=== PATIENT | male | born 1945 | race Caucasian/White ===

== ENCOUNTER 2020-01-04 16:23 | Emergency (ER) | payer MEDICARE, SELFPAY ==
[2020-01-04 16:36] VITALS: BP 179/103; PULSE 82; RESP 16; TEMP 36.4; O2SAT 97; BMI 22.9
--- NOTE | 2020-01-04 16:46 | XR_ITS ---
WS: [id number] PORTABLE CHEST HISTORY: cp COMPARISON: 03/19/2019 Mild pulmonary hyperexpansion. No pneumonia or pulmonary nodules. No pleural effusion or pneumothorax . Cardiac size: Normal. Mediastinum/Aorta: Mild atherosclerosis aorta. Single anchor RIGHT humeral head. XR/XR chest 1V portable [id number] IMPRESSION: Chronic emphysema and mild ectatic thoracic aorta. No pneumonia.
--- NOTE | 2020-01-04 16:46 | ECG_ITS ---
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 Measurements Intervals [place] Rate: 73 P: 42 [place]: 176 QRS: 33 QRSD: 113 T: 38 QT: 404 QTc: 446 Interpretive Statements SINUS RHYTHM INCOMPLETE RIGHT BUNDLE BRANCH BLOCK NONSPECIFIC T-WAVE ABNORMALITY Compared to ECG 03/19/2019 09:30:37 T-wave abnormality now present Sinus bradycardia no longer present Electronically Signed On 01-04-2020 18:25:04 CDT by Haylee Silva M.D. [email or web address]/[id number]
--- NOTE | 2020-01-04 16:54 | W.ED.CHESTPA ---
HPI - Chest Pain General: Chief Complaint: Chest Pain Stated Complaint: high bp Time Seen by Provider: 01/04/20 16:51 History of Present Illness: HPI narrative: 74-year-old male comes in complaint of chest pain. He said the chest pain for last 2 to 3 days additionally his blood pressures been elevated. He had chest pain for last 2 to 3 days is worse when he takes a deep breath worsening palpates along the lower border of the sternum. About 2 weeks ago they started him on amlodipine 2.5 mg his blood pressure is been a little off since then. He also notes that when he lays down flat the chest pain is much better. He is not noticed any focal neurologic deficits, no difficulty speech or swallowing. He does have neurogenic bladder from previous spinal cord injury. MD complaint: chest pain Onset (ago): week(s) Timing of current episode: episodic and still present Prior episodes: No Onset: during rest Pain location: left chest Pain radiation: none Severity: mild Quality: sharp Relieving factors: rest and remaining still Exacerbating factors: inspiration and palpation Associated symptoms: Deny diaphoresis, dyspnea, fever(s), leg edema, nausea, palpitations, sense of impending doom, syncope or vomiting Treatment prior to arrival: none Review of Systems Const: Denies: fever(s) or diaphoresis ENMT: Denies: throat pain, ear or mastoid pain, nasal discharge or nasal congestion Card: Denies: palpitations or syncope Resp: Denies: dyspnea GI: Denies: nausea or vomiting : Denies: flank pain, dysuria, urinary frequency or urinary urgency Skin/Breast: Denies: rash or pruritus PFSH ED PFSH: Medical History (Updated 01/04/20 @ 18:39 by Ky Onofre DO) Hypertension Traumatic brain injury Surgical History (Updated 01/04/20 @ 17:37 by Ky Onofre DO) History of total left hip arthroplasty Social History (Updated 01/04/20 @ 17:37 by Ky Onofre DO) Smoking and tobacco status: former smoker Alcohol intake: current Alcohol intake frequency: holidays/special occasions only Physical Exam Const: COMMON NORMALS: no acute distress GENERAL APPEARANCE: cooperative and comfortable ORIENTATION/CONSCIOUSNESS: Yes awake, Yes oriented to person, Yes oriented to place and Yes oriented to time HENMT: COMMON NORMALS: normocephalic, atraumatic, hearing grossly normal bilaterally, external ears normal, EAC's normal, TM's normal bilaterally, Normal nasal mucous membranes and turbinates present, moist oral mucous membranes and oropharynx normal HEAD & SCALP: normocephalic and atraumatic NOSE: Normal nasal mucous membranes and turbinates present EXTERNAL EAR: Yes external ears normal EXTERNAL AUDITORY CANAL: EAC's normal TYMPANIC MEMBRANE: TM's normal bilaterally Eye: COMMON NORMALS: Equal, round and reactive pupils present, EOMs intact bilaterally, conjunctivae normal and no scleral icterus CONJUNCTIVA: Yes conjunctivae normal PUPIL: Yes Equal, round and reactive pupils present Neck/C-Spine: COMMON NORMALS: full ROM, no lymphadenopathy, supple and no JVD Lymph: LYMPHATIC: no lymphadenopathy noted and no lymphedema noted Chest: COMMONS NORMALS: normal inspection of the chest CHEST: Yes localized rib tenderness with anteroposterior compression (Lower left sternum) Resp: COMMON NORMALS: normal respiratory effort, No retractions, No use of accessory muscles and clear to auscultation bilaterally AUSCULTATION: clear to auscultation bilaterally Cardio: COMMON NORMALS: no JVD, regular rate, regular rhythm and No murmurs present (Cardio) RATE: regular rate RHYTHM: regular rhythm GI: COMMON NORMALS: Soft to palpation and No hepatosplenomegaly present AUSCULTATION: Yes normoactive bowel sounds PALPATION: Yes Soft to palpation, No Tenderness to palpation present (GI), No Guarding due to palpation present (GI) and Yes No hepatosplenomegaly present Extremity: COMMON NORMALS: normal to inspection, capillary refill normal, no clubbing, cyanosis or edema, no calf tenderness and no pedal edema Neuro: SENSORIUM/ORIENTATION: Yes oriented to person, Yes oriented to place and Yes oriented to time Skin: COMMON NORMALS: no rashes or lesions noted GENERAL SKIN EXAM: no rashes or lesions noted Course Vital Signs: Vital signs: Vital Signs Temperature 97.6 F 01/04/20 16:36 Pulse Rate 78 01/04/20 18:54 Respiratory Rate 15 01/04/20 18:54 Blood Pressure 160/79 01/04/20 18:54 Pulse Oximetry 98 01/04/20 18:54 MDM - Chest Pain Lab Data: Labs: Lab Results 06/22/20 06/22/20 06/22/20 Range/Units 17:15 17:15 17:15 WBC 6.9 (4.0-10.0) 10^3/ uL RBC 4.97 (4.1-5.3) 10^6/u L Hgb 14.8 (11.7-16.6) g/dL Hct 44.8 (42.0-52.0) % MCV 90.1 (80-94) fL MCH 29.8 (28.0-34.0) pg MCHC 33.0 (30.0-36.0) g/dL RDW 12.0 L (12.1-15.1) % Plt Count 222 (130-400) 10^3/c mm MPV 9.5 (7.4-10.4) fL Neut % (Auto) 57.0 % Lymph % (Auto) 26.0 % [place] % (Auto) 6.4 % Eos % (Auto) 9.6 % Baso % (Auto) 0.9 % Neut # (Auto) 3.9 (1.8-7.7) 10^3/u L Lymph # (Auto) 1.8 (0.8-4.8) 10^3/u L [place] # (Auto) 0.4 (0.2-0.9) 10^3/u L Eos # (Auto) 0.7 (0.0-0.8) 10^3/u L Baso # (Auto) 0.1 (0.0-0.1) 10^3/u L Nucleated RBC % (a uto) 0 % Nucleated RBCs # 0.0 /100WBC Sodium 142 (136-145) mmol/L Potassium 3.5 (3.5-5.1) mmol/L Chloride 100 (98-107) mmol/L Carbon Dioxide 29 (22-29) mmol/L Anion Gap 16.5 (5-19) BUN 7 L (8-23) mg/dL Creatinine 0.9 (0.7-1.2) mg/dL Glucose 103 (65-115) mg/dL Calculated Osmolal ity 290 (285-295) mOsm/k g Calcium 10.0 (8.5-10.5) mg/dL Magnesium 1.8 (1.7-2.3) mg/dL Total Bilirubin 0.6 (0.15-1.2) mg/dL AST 16 (0-40) U/L ALT 11 (0-41) U/L Alkaline Phosphata se 97 (40-130) IU/L Troponin T Baselin e 9 (0-15) ng/L NT-Pro-B Natriuret Pep 214 H (0-125) pg/mL Total Protein 7.1 (6.6-8.7) g/dL Albumin 4.6 (3.5-5.2) g/dL Globulin 2.5 (1.3-4.6) g/dL TSH 0.33 (0.27-4.20) uIU/ mL Urine Color (Yellow) Urine Appearance (CLEAR) Urine pH (5-7) Ur Specific Gravit y (1.005-1.030) Urine Protein (Negative) Urine Glucose (UA) (Normal) Urine Ketones (Negative) Urine Blood (Negative) Urine Nitrate (Negative) Urine Bilirubin (NEGATIVE) Urine Urobilinogen (Negative) mg/dL Ur Leukocyte Radha ase (Negative) Urine RBC (0-2) /hpf Urine WBC (0-5) /hpf Ur Squamous Epith Cells (0-5) Urine Bacteria (NONE) 01/04/20 Range/Units 17:39 WBC (4.0-10.0) 10^3/ uL RBC (4.1-5.3) 10^6/u L Hgb (11.7-16.6) g/dL Hct (42.0-52.0) % MCV (80-94) fL MCH (28.0-34.0) pg MCHC (30.0-36.0) g/dL RDW (12.1-15.1) % Plt Count (130-400) 10^3/c mm MPV (7.4-10.4) fL Neut % (Auto) % Lymph % (Auto) % Jess[place] % (Auto) % Eos % (Auto) % Baso % (Auto) % Neut # (Auto) (1.8-7.7) 10^3/u L Lymph # (Auto) (0.8-4.8) 10^3/u L [place] # (Auto) (0.2-0.9) 10^3/u L Eos # (Auto) (0.0-0.8) 10^3/u L Baso # (Auto) (0.0-0.1) 10^3/u L Nucleated RBC % (a uto) % Nucleated RBCs # /100WBC Sodium (136-145) mmol/L Potassium (3.5-5.1) mmol/L Chloride (98-107) mmol/L Carbon Dioxide (22-29) mmol/L Anion Gap (5-19) BUN (8-23) mg/dL Creatinine (0.7-1.2) mg/dL Glucose (65-115) mg/dL Calculated Osmolal ity (285-295) mOsm/k g Calcium (8.5-10.5) mg/dL Magnesium (1.7-2.3) mg/dL Total Bilirubin (0.15-1.2) mg/dL AST (0-40) U/L ALT (0-41) U/L Alkaline Phosphata se (40-130) IU/L Troponin T Baselin e (0-15) ng/L NT-Pro-B Natriuret Pep (0-125) pg/mL Total Protein (6.6-8.7) g/dL Albumin (3.5-5.2) g/dL Globulin (1.3-4.6) g/dL TSH (0.27-4.20) uIU/ mL Urine Color Yellow (Yellow) Urine Appearance Sl cloudy A (CLEAR) Urine pH 8 H (5-7) Ur Specific Gravit y 1.010 (1.005-1.030) Urine Protein Neg (Negative) Urine Glucose (UA) Norm (Normal) Urine Ketones Negative (Negative) Urine Blood 2+ H (Negative) Urine Nitrate Positive H (Negative) Urine Bilirubin Neg (NEGATIVE) Urine Urobilinogen Neg (Negative) mg/dL Ur Leukocyte Radha ase 1+ H (Negative) Urine RBC 0-4 H (0-2) /hpf Urine WBC 0-4 H (0-5) /hpf Ur Squamous Epith Cells None (0-5) Urine Bacteria 3+ H (NONE) Discharge Plan Discharge Patient Disposition: Home, Self-Care Clinical Impression: Hypertension, Anterior chest wall pain, Atypical chest pain Condition: Stable Prescriptions: New amlodipine 10 mg tablet 10 mg PO DAILY Qty: 30 RF: 0 Discontinued amlodipine 2.5 mg tablet 5 mg PO DAILY RF: 0 No Action multivitamin Tablet 1 tab PO DAILY RF: 0 metoprolol tartrate 100 mg tablet 50 mg PO BID RF: 0 lisinopril 20 mg tablet 20 mg PO BID RF: 0 omeprazole 10 mg Capsule,Delayed Release(Dr/Ec) 10 mg PO BEDTIME RF: 0 Benadryl 25 mg Capsule 50 mg PO BEDTIME RF: 0 Tylenol 325 mg Capsule 650 mg PO QID PRN (Reason: Pain) RF: 0 Discharge Orders: Discharge Order (Routine); Ordered 01/04/20 Ordered By: Ky Onofre Referrals: Asha Forman MD [Primary Care Provider] - Discharge Diet: Usual diet Discharge Activity: Increase activity as tolerated Activity Restrictions/Additional Instructions: Recheck with your primary care doctor within the next 4 to 5 days to reevaluate your blood pressure with medication changes made today Discharge Date/Time: 01/04/20 18:57 Coding Level of Care Code ED Junior Mechanical Engineer for Sachig Fwd Exam Comprehensive
[2020-01-04 17:13] VITALS: BP 207/106; PULSE 82; RESP 14; O2SAT 98
[2020-01-04 17:33] LABS: Basophils # 0.1 10^3/uL (0.0-0.1); Basophils % 0.9 %; Eosinophils # 0.7 10^3/uL (0.0-0.8); Eosinophils % 9.6 %; Hematocrit 44.8 % (42.0-52.0); Hemoglobin 14.8 g/dL (11.7-16.6); Lymphocytes # 1.8 10^3/uL (0.8-4.8); Mean Corpuscular Hemoglobin 29.8 pg (28.0-34.0); Mean Corpuscular Volume 90.1 fL (80-94); Mean Platelet Volume 9.5 fL (7.4-10.4); Monocytes # 0.4 10^3/uL (0.2-0.9); Monocytes % 6.4 %; Neutrophils # 3.9 10^3/uL (1.8-7.7); Nucleated Red Blood Cells % 0 %; Platelet Count 222 10^3/cmm (130-400); Red Blood Count 4.97 10^6/uL (4.1-5.3); White Blood Count 6.9 10^3/uL (4.0-10.0)
[2020-01-04 17:50] LABS: Troponin(5th) Baseline 9 ng/L (0-15)
[2020-01-04 18:01] LABS: Alanine Aminotransferase 11 U/L (0-41); Albumin Level 4.6 g/dL (3.5-5.2); Alkaline Phosphatase 97 IU/L (40-130); Anion Gap 16.5 (5-19); Aspartate Amino Transferase 16 U/L (0-40); Blood Urea Nitrogen 7 mg/dL (8-23); Carbon Dioxide 29 mmol/L (22-29); Chloride 100 mmol/L (98-107); Globulin 2.5 g/dL (1.3-4.6); Glucose 103 mg/dL (65-115); Magnesium 1.8 mg/dL (1.7-2.3); NT Pro B Type Natriuretic Pept 214 pg/mL (0-125); Osmolality Calculated 290 mOsm/kg (285-295); Potassium 3.5 mmol/L (3.5-5.1); Sodium 142 mmol/L (136-145); Thyroid Stimulating Hormone 0.33 uIU/mL (0.27-4.20); Total Bilirubin 0.6 mg/dL (0.15-1.2); Total Protein 7.1 g/dL (6.6-8.7)
[2020-01-04 18:34] LABS: Urine Color Yellow (Yellow)
[2020-01-04 18:35] LABS: Bilirubin Urine Neg (NEGATIVE); Blood Urine 2+ (Negative); Glucose Urine UA Norm (Normal); Ketones Urine Negative (Negative); Leukocyte Esterase Urine 1+ (Negative); Nitrate Urine Positive (Negative); Protein Urine Neg (Negative); Urobilinogen Urine Neg (Negative); pH Urine 8 (5-7)
[2020-01-04 18:36] LABS: Add Urine Culture? Yes; Add Urine Microscopic? YES; Bacteria Urine 3+; RBC Urine 0-4 /hpf (0-2); WBC Urine 0-4 /hpf (0-5)
[2020-01-04] MEDS: amlodipine 5 mg Tablet PO (18:42)
[2020-01-04] MEDS: hyDRALAzine 20 mg/mL INJ 1 mL 10 MG IVP (18:42)
[2020-01-04 18:43] VITALS: BP 180/94; PULSE 78; RESP 16; O2SAT 98
--- NOTE | 2020-01-04 18:46 | ECG_ITS ---
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 Measurements Intervals [place] Rate: 67 P: 7 CT: 153 QRS: 10 QRSD: 113 T: 21 QT: 408 QTc: 434 Interpretive Statements SINUS RHYTHM INCOMPLETE RIGHT BUNDLE BRANCH BLOCK NONSPECIFIC T-WAVE ABNORMALITY Compared to ECG 01/04/2020 16:55:20 No significant changes Electronically Signed On 01-04-2020 18:53:32 CDT by Haylee Silva M.D. [email or web address]/store/OM/[id number]
[2020-01-04 18:54] VITALS: BP 160/79; PULSE 78; RESP 15; O2SAT 98
--- NOTE | 2020-01-05 15:21 | DCPLANNER ---
competitive intelligence manager had message to schedule an outpatient stress test. competitive intelligence manager got order signed, and faxed to centralized scheduling. competitive intelligence manager will call for appointment information.
--- NOTE | 2020-01-07 08:34 | DCPLANNER ---
Patient has a stress test scheduled for Saturday. January 22, 2020 at 11:30. Centralized scheduling will call patient with appointment information.
--- NOTE | 2020-01-26 12:28 | DCPLANNER ---
Patient did not attend stress test scheduled for 01.22.20.
== END 2020-01-04 18:57 | disposition home or self-care (01) ==
PROVIDERS: Nurse Practitioner Family; Emergency Provider Family Medicine; PCP Family Medicine
DX: R07.89 Other chest pain (principal); I10 Essential (primary) hypertension; Z87.891 Personal history of nicotine dependence; Z79.899 Other long term (current) drug therapy
CPT/HCPCS: 12345; 36415; 71045; 80053; 81001; 83735; 83880; 84443; 84484; 85025; 87077; 87086; 87186; 93005; 96374; 96375; 99282; 99283; J0360

== ENCOUNTER → 2020-11-16 10:19 | Outpatient (BNVA) | payer MEDICARE, SELFPAY | PROVIDERS: PCP Family Medicine; Visit Provider Internal Medicine | DX: Z01.812 Encounter for preprocedural laboratory examination (principal); Z20.822 Contact with and (suspected) exposure to COVID-19 | CPT/HCPCS: 87635 ==

== ENCOUNTER → 2020-11-17 10:40 | Outpatient (BNVA) | payer MEDICARE, SELFPAY | PROVIDERS: PCP Internal Medicine; Visit Provider Urology | DX: N39.9 Disorder of urinary system, unspecified (principal); R33.9 Retention of urine, unspecified; N31.9 Neuromuscular dysfunction of bladder, unspecified; R82.71 Bacteriuria | CPT/HCPCS: 81003 ==

== ENCOUNTER 2020-11-22 13:26 | Outpatient (CLI) | payer MEDICARE, SELFPAY ==
--- NOTE | 2020-11-22 14:12 | PFTS_ITS ---
Date of Study:11/22/20 Date of Dictation: 11/25/2020 MECHANICS: Prebronchodilator forced vital capacity (FVC) is normal. Prebronchodilator forced expiratory volume in one second (FEV1) is normal. FEV1/FVC is normal. There is no postbronchodilator study performed. FLOW VOLUME LOOP: Normal . LUNG VOLUMES: Not measured DIFFUSING CAPACITY FOR CARBON MONOXIDE: Not measured . INTERPRETATION: The prebronchodilator spirometry is normal. Postbronchodilator study not performed. Correlate clinically. MTDD
== END 2020-11-22 13:27 | disposition home or self-care (01) ==
LOC: RT 13:31
PROVIDERS: PCP Internal Medicine; Visit Provider Internal Medicine
DX: J43.9 Emphysema, unspecified (principal); R05 Cough
CPT/HCPCS: 94010

== ENCOUNTER 2021-05-18 21:01 | Emergency (ER) | payer MEDICARE, SELFPAY ==
[2021-05-18 21:11] VITALS: BP 215/87; PULSE 66; RESP 18; TEMP 36.3; O2SAT 97; BMI 22.9
--- NOTE | 2021-05-18 21:23 | XRR_ITS ---
PROCEDURE INFORMATION: Exam: XR Chest Exam date and time: 05/18/2021 9:23 PM Age: 75 years old Clinical indication: Left-sided; Patient HX: High BP, left sided chest pain x 1day; Additional info: Cp TECHNIQUE: Imaging protocol: XR of the chest. Views: 1 view. COMPARISON: CR XR chest 1V portable [id number] 01/04/2020 5:28 PM FINDINGS: Lungs: Stable COPD . Pleural spaces: Unremarkable. No pleural effusion. No pneumothorax. Heart/Mediastinum: Unremarkable. No cardiomegaly. Bones/joints: Unremarkable. XR/XR chest 1V portable [id number] IMPRESSION: Stable COPD . Radiation Dose CTDIVOL = (mGy): DLP = (mGy-cm)
--- NOTE | 2021-05-18 21:24 | ECG_ITS ---
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 Measurements Intervals [place] Rate: 69 P: 45 [place]: 154 QRS: 7 QRSD: 110 T: 39 QT: 414 QTc: 444 Interpretive Statements SINUS RHYTHM INCOMPLETE RIGHT BUNDLE BRANCH BLOCK [90+ ms QRS DURATION, TERMINAL R IN V1/V2, 40+ ms S IN I/aVL/V4/V5/V6] Compared to ECG 01/04/2020 18:49:20 T-wave abnormality no longer present Electronically Signed On 05-18-2021 22:18:40 CDT by Víctor Mendoza M.D. [email or web address]/[id number] f
--- NOTE | 2021-05-18 22:27 | CTR_ITS ---
PROCEDURE INFORMATION: Exam: CT Head Without Contrast Exam date and time: 05/18/2021 10:27 PM Age: 75 years old Clinical indication: Pain; Dizziness; Headache; Additional info: GRANADOS, dizziness, elevated BP TECHNIQUE: Imaging protocol: Computed tomography of the head without contrast. Radiation optimization: All CT scans at this facility use at least one of these dose optimization techniques: automated exposure control; mA and/or kV adjustment per patient size (includes targeted exams where dose is matched to clinical indication); or iterative reconstruction. COMPARISON: MRI Cervical Spine w/o* [id number] 07/22/2018 1:14 PM RADIATION DOSE METRICS: Total DLP (mGy-cm): 890.07 FINDINGS: Brain: Pnci-mr-veaopjxa frontal lobe atrophy. Cerebral ventricles: No ventriculomegaly. Paranasal sinuses: Bwik-pj-buhzjpvp bilateral ethmoid and frontal sinus disease. Mastoid air cells: Visualized mastoid air cells are well aerated. Vasculature: Severe calcified intracranial atherosclerotic vessel disease. Bones/joints: Mild degenerative disc disease and spondylosis. Soft tissues: Unremarkable. CT/CT head wo con* [id number] IMPRESSION: 1. Refe-ez-jhxxvydt frontal lobe atrophy. 2. Jymb-vf-qsfrespd bilateral ethmoid and frontal sinus disease. 3. No acute intracranial findings. Radiation Dose CTDIVOL = (mGy): DLP = 890.07 (mGy-cm)
--- NOTE | 2021-05-18 22:28 | ECG_ITS ---
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1945 Requested By: Ros Nagy Order Number: [id number] Reading MD: KIRBY MENDOSA Measurements Intervals [place] Rate: 69 P: 45 [place]: 154 QRS: 7 QRSD: 110 T: 39 QT: 414 QTc: 444 Interpretive Statements SINUS RHYTHM INCOMPLETE RIGHT BUNDLE BRANCH BLOCK [90+ ms QRS DURATION, TERMINAL R IN V1/V2, 40+ ms S IN I/aVL/V4/V5/V6] Compared to ECG 01/04/2020 18:49:20 T-wave abnormality no longer present Electronically Signed On 05-20-2021 0:01:30 CDT by KIRBY MENDOSA [email or web address].[employer]/store/NU/[id number] f
--- NOTE | 2021-05-18 22:34 | W.ED.WEAKNES ---
HPI - Weakness General: Chief complaint: Weakness Stated complaint: High Blood Pressure Time Seen by Provider: 05/18/21 22:21 Source: patient Mode of arrival: ambulatory Limitations: no limitations History of Present Illness: HPI Narrative: 75-year-old male who has history of high blood pressure states that throughout the day his blood pressures been running 200s he had a mild headache along with some weakness. States he does get a headache at times and his blood pressure elevates he states he has been taking his blood pressure meds he does not take anything extra. Denies any vomiting diarrhea denies any worsening improving factors. Associated symptoms: Reports headache(s); Denies chest pain, chills, dysuria, easy bruising, fever(s), nausea or vomiting Review of Systems Const: Denies: fever(s), chills, body aches or change in appetite Eyes: Denies: blurry vision or eye discomfort ENMT: Denies: throat pain or dental pain Card: Denies: chest pain Resp: Denies: dyspnea GI: Denies: abdominal pain, nausea, vomiting or diarrhea : Denies: dysuria Musc: Denies: neck pain or back pain Skin/Breast: Denies: rash Neuro: Reports: headache(s) Psych: Denies: depression Dima/Lymph: Denies: easy bruising All/Imm: Denies: urticaria PFSH ED PFSH: Medical History Atrial tachycardia Benign essential hypertension with target blood pressure below 140/90 Chronic bacteriuria Dyslipidemia Hypertension Neurogenic bladder Traumatic brain injury Urinary retention Surgical History History of total left hip arthroplasty Family History Other CAD (coronary artery disease) Cancer Hypertension Social History Smoking and tobacco status: former smoker Alcohol intake: current Alcohol intake frequency: holidays/special occasions only Marital status: History of recent travel: No Physical Exam Const: COMMON NORMALS: no acute distress, patient oriented x3 and healthy appearing HENMT: COMMON NORMALS: normocephalic and atraumatic HEAD & SCALP: normocephalic and atraumatic Eye: COMMON NORMALS: Equal, round and reactive pupils present and EOMs intact bilaterally PUPIL: Yes Equal, round and reactive pupils present Neck/C-Spine: COMMON NORMALS: full ROM and supple Chest: COMMONS NORMALS: normal inspection of the chest and normal palpation of entire chest wall Resp: COMMON NORMALS: normal respiratory effort, No retractions, No use of accessory muscles and clear to auscultation bilaterally AUSCULTATION: clear to auscultation bilaterally Cardio: COMMON NORMALS: regular rate, regular rhythm and No murmurs present (Cardio) RATE: regular rate RHYTHM: regular rhythm GI: COMMON NORMALS: Normal to inspection, nondistended, normoactive bowel sounds present, Soft to palpation, non-tender and no masses PALPATION: Yes Soft to palpation Extremity: COMMON NORMALS: normal to inspection and full ROM Neuro: COMMON NORMALS: patient oriented x3, moves all extremities and no focal motor deficits Psych: COMMON NORMALS: mental status grossly normal, Normal thought process present and cooperative THOUGHT PROCESS: Normal thought process present Skin: COMMON NORMALS: no rashes or lesions noted and no wounds GENERAL SKIN EXAM: no rashes or lesions noted Course Vital Signs: Vital signs: Vital Signs Temperature 97.4 F L 05/18/21 21:11 Pulse Rate 61 05/18/21 22:45 Respiratory Rate 20 H 05/18/21 22:45 Blood Pressure 176/91 05/18/21 22:45 Pulse Oximetry 96 05/18/21 22:45 MDM - Weakness MDM Narrative: Medical decision making narrative: Patient presents with hypertension likely causing his headache headache is resolved now his blood pressure is better head CT shows no signs of intracranial hemorrhage EKG and troponins are normal he stable for discharge will increase his lisinopril he is to take a log of his blood pressure and follow-up with PCP in 4 to 6 days return if worsening he understands agrees to plan. Lab Data: Labs: Lab Results 05/18/21 05/18/21 05/18/21 22:25 22:25 22:25 WBC 7.8 10^3/uL 10^3/ uL (4.0-10.0) RBC 4.39 10^6/uL 10^6 /uL (4.1-5.3) Hgb 13.3 g/dL g/dL (11.7-16.6) Hct 39.9 % L % (42.0-52.0) MCV 90.9 fl fl (80-94) MCH 30.3 pg pg (28.0-34.0) MCHC 33.3 g/dL g/dL (30.0-36.0) RDW 12.8 % % (12.1-15.1) Plt Count 186 10^3/cmm 10^3 /cmm (130-400) MPV 9.7 fL fL (7.4-10.4) Neut % (Auto) 71.2 % % Lymph % (Auto) 18.0 % % [place] % (Auto) 6.0 % % Eos % (Auto) 3.9 % % Baso % (Auto) 0.8 % % Neut # (Auto) 5.53 10^3/uL 10^3 /uL (1.8-7.7) Lymph # (Auto) 1.4 10^3/uL 10^3/ uL (0.8-4.8) [place] # (Auto) 0.5 10^3/uL 10^3/ uL (0.2-0.9) Eos # (Auto) 0.3 10^3/uL 10^3/ uL (0.0-0.8) Baso # (Auto) 0.1 10^3/uL 10^3/ uL (0.0-0.1) Nucleated RBC % (a uto) 0 % % Nucleated RBCs # 0.0 /100WBC /100W BC Sodium 141 mmol/L mmol/L (136-145) Potassium 3.7 mmol/L mmol/L (3.5-5.1) Chloride 103 mmol/L mmol/L (98-107) Carbon Dioxide 28 mmol/L mmol/L (22-29) Anion Gap 13.7 (5-19) BUN 10 mg/dL mg/dL (8-23) Creatinine 0.9 mg/dL mg/dL (0.7-1.2) GFR Calculation Not Reportable Glucose 142 mg/dL H mg/dL (65-115) Calculated Osmolal ity 293 mOsm/kg mOsm/ kg (285-295) Calcium 8.9 mg/dL mg/dL (8.5-10.5) Total Bilirubin 0.4 mg/dL mg/dL (0.15-1.2) AST 15 U/L U/L (0-40) ALT 9 U/L U/L (0-41) Alkaline Phosphata se 70 IU/L IU/L (40-130) Troponin T Baselin e 11 ng/L ng/L (0-15) Total Protein 6.6 g/dL g/dL (6.6-8.7) Albumin 4.3 g/dL g/dL (3.5-5.2) Globulin 2.3 g/dL g/dL (1.3-4.6) Imaging Data^: CT Head: Attestation: I personally reviewed and interpreted this imaging study as follows: Radiologist's impression: [employer] (T/A)[address] [place] [address] CT Scan Report Signed Patient: Carlitos Doshi Unit #: [id number] : 1945 Age/Sex: 75 / M ADM Date: 05/18/21 Loc: ER Room/Bed: Attending Dr: Ordering Provider/Ordering MD: Ros Nagy MD Date of Service: 05/18/21 Procedure(s): CT head wo con* [id number] Accession Number(s): [id number] Report Number: [id number] PROCEDURE INFORMATION: Exam: CT Head Without Contrast Exam date and time: 05/18/2021 10:27 PM Age: 75 years old Clinical indication: Pain; Dizziness; Headache; Additional info: GRANADOS, dizziness, elevated BP TECHNIQUE: Imaging protocol: Computed tomography of the head without contrast. Radiation optimization: All CT scans at this facility use at least one of these dose optimization techniques: automated exposure control; mA and/or kV adjustment per patient size (includes targeted exams where dose is matched to clinical indication); or iterative reconstruction. COMPARISON: MRI Cervical Spine w/o* [id number] 07/22/2018 1:14 PM RADIATION DOSE METRICS: Total DLP (mGy-cm): 890.07 FINDINGS: Brain: Htin-ij-vczzysyc frontal lobe atrophy. Cerebral ventricles: No ventriculomegaly. Paranasal sinuses: Lawb-sn-nyvuftwf bilateral ethmoid and frontal sinus disease. Mastoid air cells: Visualized mastoid air cells are well aerated. Vasculature: Severe calcified intracranial atherosclerotic vessel disease. Bones/joints: Mild degenerative disc disease and spondylosis. Soft tissues: Unremarkable. CT/CT head wo con* [id number] IMPRESSION: 1. Synm-wz-hdwndbxe frontal lobe atrophy. 2. Kwdn-kc-oenuwver bilateral ethmoid and frontal sinus disease. 3. No acute intracranial findings. Radiation Dose CTDIVOL = (mGy): DLP = 890.07 (mGy-cm) Dictated By: Poli Marie MD Signed By: Poli Marie MD Signed Date/Time: 05/18/212246 Discharge Plan Discharge Patient Disposition: Home Clinical Impression: Hypertension Qualifiers: Hypertension type: unspecified Qualified Code(s): I10 - Essential (primary) hypertension Headache Qualifiers: Headache type: unspecified Headache chronicity pattern: unspecified pattern Intractability: not intractable Qualified Code(s): R51.9 - Headache, unspecified Condition: Stable Prescriptions: Changed lisinopril 20 mg tablet 40 mg PO BID Qty: 60 RF: 0 No Action multivitamin Tablet 1 tab PO DAILY RF: 0 omeprazole 10 mg Capsule,Delayed Release(Dr/Ec) 10 mg PO BEDTIME RF: 0 Benadryl 25 mg Capsule 50 mg PO BEDTIME RF: 0 Tylenol 325 mg Capsule 650 mg PO QID PRN (Reason: Pain) RF: 0 amlodipine 10 mg tablet 10 mg PO DAILY Qty: 30 RF: 0 metoprolol tartrate 100 mg tablet 100 mg PO DAILY RF: 0 Discharge Orders: Discharge ED (Routine); Ordered 05/18/21 Ordered By: Ros Nagy Referrals: Thuy Shaikh DO [Primary Care Provider] - 1-3 days Discharge Diet: Advance as tolerated Discharge Activity: Resume usual activity Patient Instructions: Headache, Hypertension (ED) Coding Level of Care Code ED Databases Computer Consultant for Chg Fwd Exam Comprehensive
[2021-05-18 22:35] LABS: Basophils # 0.1 10^3/uL (0.0-0.1); Basophils % 0.8 %; Eosinophils # 0.3 10^3/uL (0.0-0.8); Eosinophils % 3.9 %; Hematocrit 39.9 % (42.0-52.0); Hemoglobin 13.3 g/dL (11.7-16.6); Lymphocytes # 1.4 10^3/uL (0.8-4.8); Mean Corpuscular HGB Conc 33.3 g/dL (30.0-36.0); Mean Corpuscular Hemoglobin 30.3 pg (28.0-34.0); Mean Corpuscular Volume 90.9 fl (80-94); Mean Platelet Volume 9.7 fL (7.4-10.4); Monocytes # 0.5 10^3/uL (0.2-0.9); Neutrophils # 5.53 10^3/uL (1.8-7.7); Neutrophils % 71.2 %; Nucleated Red Blood Cells % 0 %; Platelet Count 186 10^3/cmm (130-400); Red Blood Count 4.39 10^6/uL (4.1-5.3); Red Cell Distribution Width 12.8 % (12.1-15.1); White Blood Count 7.8 10^3/uL (4.0-10.0)
[2021-05-18 22:45] VITALS: BP 176/91; PULSE 61; RESP 20; O2SAT 96
[2021-05-18] MEDS: labetalol 5 mg/mL SDV 20mL 10 MG IVP (22:49)
[2021-05-18 22:51] LABS: Troponin(5th) Baseline 11 ng/L (0-15)
[2021-05-18 22:54] LABS: Alanine Aminotransferase 9 U/L (0-41); Albumin Level 4.3 g/dL (3.5-5.2); Alkaline Phosphatase 70 IU/L (40-130); Anion Gap 13.7 (5-19); Aspartate Amino Transferase 15 U/L (0-40); Blood Urea Nitrogen 10 mg/dL (8-23); Calcium 8.9 mg/dL (8.5-10.5); Carbon Dioxide 28 mmol/L (22-29); Chloride 103 mmol/L (98-107); Globulin 2.3 g/dL (1.3-4.6); Glucose 142 mg/dL (65-115); Osmolality Calculated 293 mOsm/kg (285-295); Potassium 3.7 mmol/L (3.5-5.1); Sodium 141 mmol/L (136-145); Total Bilirubin 0.4 mg/dL (0.15-1.2); Total Protein 6.6 g/dL (6.6-8.7)
[2021-05-18 23:39] VITALS: BP 150/78; PULSE 56; RESP 18; O2SAT 95
== END 2021-05-18 23:39 | disposition home or self-care (01) ==
PROVIDERS: Emergency Provider Emergency Medicine; PCP Internal Medicine
DX: I10 Essential (primary) hypertension (principal); Z87.891 Personal history of nicotine dependence; R51.9 Headache, unspecified
CPT/HCPCS: 36415; 70450; 71045; 80053; 84484; 85025; 93005; 96374; 99283; J3490

== ENCOUNTER 2021-07-28 21:49 | Emergency (ER) | payer MEDICARE, SELFPAY ==
[2021-07-28 22:01] VITALS: BP 95/50; PULSE 109; RESP 18; TEMP 36.7; O2SAT 95; BMI 23.2
--- NOTE | 2021-07-28 22:13 | ECG_ITS ---
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1945 Requested By: Ros Nagy Order Number: [id number] Reading MD: KIRBY MENDOSA Measurements Intervals [place] Rate: 91 P: 49 [place]: 136 QRS: 28 QRSD: 112 T: 39 QT: 338 QTc: 416 Interpretive Statements SINUS RHYTHM INCOMPLETE RIGHT BUNDLE BRANCH BLOCK [90+ ms QRS DURATION, TERMINAL R IN V1/V2, 40+ ms S IN I/aVL/V4/V5/V6] NONSPECIFIC ST & T-WAVE ABNORMALITY Compared to ECG 07/28/2021 22:48:46 Incomplete right bundle-branch block now present Ventricular premature complex(es) no longer present Intraventricular conduction delay no longer present T-wave abnormality still present Electronically Signed On 07-29-2021 19:57:04 EVP MARKETING by KIRBY MENDOSA [id number] f
--- NOTE | 2021-07-28 22:13 | XRR_ITS ---
PROCEDURE INFORMATION: Exam: XR Chest Exam date and time: 07/28/2021 10:13 PM Age: 76 years old Clinical indication: Shortness of breath; Additional info: SOB TECHNIQUE: Imaging protocol: XR of the chest. Views: 1 view. COMPARISON: No relevant prior studies available. FINDINGS: Lungs: Minor bibasilar scarring. No consolidation. Pleural spaces: Unremarkable. No pleural effusion. No pneumothorax. Heart/Mediastinum: Unremarkable. No cardiomegaly. Bones/joints: Unremarkable. XR/XR chest 1V portable [id number] IMPRESSION: No acute findings.
[2021-07-28 22:25] VITALS: BP 102/56; PULSE 100; RESP 18; O2SAT 95
--- NOTE | 2021-07-28 22:43 | W.ED.SOB ---
HPI - SOB/Dyspnea General: Chief Complaint: Shortness of Breath/Dyspnea Stated Complaint: SOB COUGH BACK PAIN Time Seen by Provider: 07/28/21 22:12 Source: patient and EMS Mode of arrival: EMS Limitations: no limitations History of Present Illness: HPI Narrative: 76-year-old male states over the last 3 days been having cough congestion along with some shortness of breath he states it is worsened today and having worsening dyspnea. When EMS arrived his pulse ox in the 80s 8.14 L. He denies any chest pain denies any fevers he states his is concerned that he may have COVID. He has not had his vaccines be states he has not been around anyone that he knows is sick. He does have back pain but states that his chronic in nature no change. Associated symptoms: Deny abdominal pain, chest pain, fever(s), nausea or vomiting Review of Systems Const: Denies: fever(s), chills, body aches or change in appetite Eyes: Denies: blurry vision or eye discomfort ENMT: Denies: throat pain or dental pain Card: Denies: chest pain Resp: Reports: dyspnea and non-productive cough GI: Denies: abdominal pain, nausea, vomiting or diarrhea : Denies: dysuria Musc: Reports: back pain Skin/Breast: Denies: rash Neuro: Denies: headache(s) Psych: Denies: depression Dima/Lymph: Denies: easy bruising All/Imm: Denies: urticaria PFSH ED PFSH: Medical History Atrial tachycardia Benign essential hypertension with target blood pressure below 140/90 Chronic bacteriuria Dyslipidemia Hypertension Neurogenic bladder Traumatic brain injury Urinary retention Surgical History History of total left hip arthroplasty Family History Other CAD (coronary artery disease) Cancer Hypertension Social History Smoking and tobacco status: former smoker Alcohol intake: current Alcohol intake frequency: holidays/special occasions only Marital status: History of recent travel: No Physical Exam Const: COMMON NORMALS: no acute distress, patient oriented x3 and healthy appearing HENMT: COMMON NORMALS: normocephalic and atraumatic HEAD & SCALP: normocephalic and atraumatic Eye: COMMON NORMALS: Equal, round and reactive pupils present and EOMs intact bilaterally PUPIL: Yes Equal, round and reactive pupils present Neck/C-Spine: COMMON NORMALS: full ROM and supple Chest: COMMONS NORMALS: normal inspection of the chest and normal palpation of entire chest wall Resp: COMMON NORMALS: normal respiratory effort, No retractions, No use of accessory muscles and clear to auscultation bilaterally AUSCULTATION: clear to auscultation bilaterally Cardio: COMMON NORMALS: regular rate, regular rhythm and No murmurs present (Cardio) RATE: regular rate RHYTHM: regular rhythm GI: COMMON NORMALS: Normal to inspection, nondistended, normoactive bowel sounds present, Soft to palpation, non-tender and no masses PALPATION: Yes Soft to palpation Extremity: COMMON NORMALS: normal to inspection and full ROM Neuro: COMMON NORMALS: patient oriented x3, moves all extremities and no focal motor deficits Psych: COMMON NORMALS: mental status grossly normal, Normal thought process present and cooperative THOUGHT PROCESS: Normal thought process present Skin: COMMON NORMALS: no rashes or lesions noted and no wounds GENERAL SKIN EXAM: no rashes or lesions noted Course Vital Signs: Vital signs: Vital Signs Temperature 98.1 F 07/28/21 22:01 Pulse Rate 99 07/29/21 04:00 Respiratory Rate 20 H 07/29/21 04:00 Blood Pressure 105/55 07/29/21 04:00 Pulse Oximetry 95 07/29/21 04:00 MDM - SOB/Dyspnea MDM Narrative: Medical decision making narrative: Patient presents here with dyspnea along with some weakness he is dehydrated he feels much improved after IV fluids patient was able to ambulate the halls never had any hypoxia was able to turn his oxygen off here COVID is negative CT abdomen pelvis and chest were normal for possible slight pneumonia we will start him on doxycycline having follow-up with PCP and return if worsening. Lab Data: Labs: Lab Results 07/18/21 07/28/21 07/28/21 23:55 22:30 22:30 WBC 2.2 10^3/uL L 10^ 3/uL (4.0-10.0) RBC 4.31 10^6/uL 10^6 /uL (4.1-5.3) Hgb 13.3 g/dL g/dL (11.7-16.6) Hct 38.7 % L % (42.0-52.0) MCV 89.8 fl fl (80-94) MCH 30.9 pg pg (28.0-34.0) MCHC 34.4 g/dL g/dL (30.0-36.0) RDW 11.9 % L % (12.1-15.1) Plt Count 145 10^3/cmm 10^3 /cmm (130-400) MPV 9.9 fL fL (7.4-10.4) Neut % (Auto) 87.1 % % Lymph % (Auto) 10.3 % % Dewitt % (Auto) 1.8 % % Eos % (Auto) 0.0 % % Baso % (Auto) 0.4 % % Neut # (Auto) 1.95 10^3/uL 10^3 /uL (1.8-7.7) Lymph # (Auto) 0.2 10^3/uL L 10^ 3/uL (0.8-4.8) Dewitt # (Auto) 0.0 10^3/uL L 10^ 3/uL (0.2-0.9) Eos # (Auto) 0.0 10^3/uL 10^3/ uL (0.0-0.8) Baso # (Auto) 0.0 10^3/uL 10^3/ uL (0.0-0.1) Nucleated RBC % (a uto) 0 % % Nucleated RBCs # 0.0 /100WBC /100W BC PT 15.00 SECONDS H S ECONDS (12.1-14.9) INR 1.15 (0.8-1.2) D-Dimer 3.27 ug/mIFEU H u g/mIFEU (0-0.59) Specimen Type Sample Site ABG pH ABG pCO2 ABG pO2 ABG HCO3 ABG Base Excess Frank Test Hematocrit O2 Delivery Device O2 Liters/Min Automatic Drilling Machine Operator ID Sodium Potassium Chloride Carbon Dioxide Anion Gap BUN Creatinine GFR Calculation Glucose Calculated Osmolal ity Lactic Acid Lactic Acid (Sepsi s) Lactate Calcium Total Bilirubin AST ALT Alkaline Phosphata se Troponin T Baselin e Troponin T 120 Min telida 26.47 ng/L H ng/L (0-15) Delta Troponin T Not Reportable C-Reactive Protein NT-Pro-B Natriuret Pep Total Protein Albumin Globulin Influenza Type A A g Influenza Type B A g SARS-CoV-2 Ag (Rap id) 07/28/21 07/28/21 07/28/21 22:30 22:30 22:30 WBC RBC Hgb Hct MCV MCH MCHC RDW Plt Count MPV Neut % (Auto) Lymph % (Auto) Dewitt % (Auto) Eos % (Auto) Baso % (Auto) Neut # (Auto) Lymph # (Auto) Dewitt # (Auto) Eos # (Auto) Baso # (Auto) Nucleated RBC % (a uto) Nucleated RBCs # PT INR D-Dimer Specimen Type Sample Site ABG pH ABG pCO2 ABG pO2 ABG HCO3 ABG Base Excess Frank Test Hematocrit O2 Delivery Device O2 Liters/Min Automatic Drilling Machine Operator ID Sodium 136 mmol/L mmol/L (136-145) Potassium 3.9 mmol/L mmol/L (3.5-5.1) Chloride 96 mmol/L L mmol/ L (98-107) Carbon Dioxide 22 mmol/L mmol/L (22-29) Anion Gap 21.9 H (5-19) BUN 33 mg/dL H mg/dL (8-23) Creatinine 2.0 mg/dL H mg/dL (0.7-1.2) GFR Calculation Not Reportable Glucose 122 mg/dL H mg/dL (65-115) Calculated Osmolal ity 291 mOsm/kg mOsm/ kg (285-295) Lactic Acid 3.2 mmol/L H mmol /L (0.5-2.2) Lactic Acid (Sepsi s) Lactate Calcium 8.6 mg/dL mg/dL (8.5-10.5) Total Bilirubin 1.0 mg/dL mg/dL (0.15-1.2) AST 24 U/L U/L (0-40) ALT 10 U/L U/L (0-41) Alkaline Phosphata se 111 IU/L IU/L (40-130) Troponin T Baselin e Troponin T 120 Min telida Delta Troponin T C-Reactive Protein 282.9 mg/L H mg/L (0.0-4.9) NT-Pro-B Natriuret Pep 892 pg/mL H pg/mL (0-450) Total Protein 6.7 g/dL g/dL (6.6-8.7) Albumin 3.9 g/dL g/dL (3.5-5.2) Globulin 2.8 g/dL g/dL (1.3-4.6) Influenza Type A A g Negative (Negative) Influenza Type B A g Negative (Negative) SARS-CoV-2 Ag (Rap id) 07/28/21 07/28/21 07/28/21 22:30 22:30 23:47 WBC RBC Hgb Hct MCV MCH MCHC RDW Plt Count MPV Neut % (Auto) Lymph % (Auto) Dewitt % (Auto) Eos % (Auto) Baso % (Auto) Neut # (Auto) Lymph # (Auto) Dewitt # (Auto) Eos # (Auto) Baso # (Auto) Nucleated RBC % (a uto) Nucleated RBCs # PT INR D-Dimer Specimen Type Arterial Sample Site Radial, left ABG pH 7.46 H (7.35-7.45) ABG pCO2 35.0 mmHg mmHg (35-45) ABG pO2 73.1 mmHg L mmHg (80.0-100.0) ABG HCO3 25.0 mmol/L mmol/ L (22-26) ABG Base Excess 1.5 mmol/L mmol/L (-2.0-2.0) Frank Test Pos Hematocrit 38.6 % L % (42-52) O2 Delivery Device Nc O2 Liters/Min 2.0 % % Automatic Drilling Machine Operator ID Buttr Sodium Potassium Chloride Carbon Dioxide Anion Gap BUN Creatinine GFR Calculation Glucose Calculated Osmolal ity Lactic Acid Lactic Acid (Sepsi s) Lactate Calcium Total Bilirubin AST ALT Alkaline Phosphata se Troponin T Baselin e 22 ng/L H ng/L (0-15) Troponin T 120 Min telida Delta Troponin T C-Reactive Protein NT-Pro-B Natriuret Pep Total Protein Albumin Globulin Influenza Type A A g Influenza Type B A g SARS-CoV-2 Ag (Rap id) Negative (Negative) 07/29/21 07/29/21 07/29/21 02:04 02:50 02:50 WBC RBC Hgb Hct MCV MCH MCHC RDW Plt Count MPV Neut % (Auto) Lymph % (Auto) Dewitt % (Auto) Eos % (Auto) Baso % (Auto) Neut # (Auto) Lymph # (Auto) Dewitt # (Auto) Eos # (Auto) Baso # (Auto) Nucleated RBC % (a uto) Nucleated RBCs # PT INR D-Dimer Specimen Type Sample Site ABG pH ABG pCO2 ABG pO2 ABG HCO3 ABG Base Excess Frank Test Hematocrit O2 Delivery Device O2 Liters/Min Automatic Drilling Machine Operator ID Sodium 136 mmol/L mmol/L (136-145) Potassium 3.5 mmol/L mmol/L (3.5-5.1) Chloride 101 mmol/L mmol/L (98-107) Carbon Dioxide 22 mmol/L mmol/L (22-29) Anion Gap 16.5 (5-19) BUN 31 mg/dL H mg/dL (8-23) Creatinine 1.8 mg/dL H mg/dL (0.7-1.2) GFR Calculation Not Reportable Glucose 97 mg/dL mg/dL (65-115) Calculated Osmolal ity 288 mOsm/kg mOsm/ kg (285-295) Lactic Acid Lactic Acid (Sepsi s) 1.1 mmol/L mmol/L (0.5-2.2) Lactate 1.5 mmol/L mmol/L (0.5-2.2) Calcium 7.2 mg/dL L mg/dL (8.5-10.5) Total Bilirubin AST ALT Alkaline Phosphata se Troponin T Baselin e Troponin T 120 Min telida Delta Troponin T C-Reactive Protein NT-Pro-B Natriuret Pep Total Protein Albumin Globulin Influenza Type A A g Influenza Type B A g SARS-CoV-2 Ag (Rap id) Imaging Data^: CXR: Attestation: I personally reviewed and interpreted this imaging study as follows: My impression: no acute findings EKG Data^: EKG 1: Attestation: I personally reviewed and interpreted this EKG as follows: EKG Interpretation Date: 07/28/21 EKG interpretation time: 22:48 Interpretation: nsr hr [address] or t wave abnormalities qrs 111 qtc 387 EKG 2: Attestation: I personally reviewed and interpreted this EKG as follows: EKG Interpretation Date: 07/29/21 EKG interpretation time: 01:40 Interpretation: nsr hr [address] or t wave abnormalities qrs 113 qtc 383 Discharge Plan Discharge Patient Disposition: Home Clinical Impression: Dehydration, Dyspnea Condition: Stable Prescriptions: New doxycycline hyclate 100 mg tablet 100 mg PO BID 7 Days Qty: 14 RF: 0 No Action lisinopril 20 mg tablet 40 mg PO BID Qty: 60 RF: 0 multivitamin Tablet 1 tab PO DAILY RF: 0 omeprazole 10 mg Capsule,Delayed Release(Dr/Ec) 10 mg PO BEDTIME RF: 0 Benadryl 25 mg Capsule 50 mg PO BEDTIME RF: 0 Tylenol 325 mg Capsule 650 mg PO QID PRN (Reason: Pain) RF: 0 amlodipine 10 mg tablet 10 mg PO DAILY Qty: 30 RF: 0 metoprolol tartrate 100 mg tablet 100 mg PO DAILY RF: 0 Discharge Orders: Discharge ED (Routine); Ordered 07/29/21 Ordered By: Ros Nagy Referrals: Isaac Munoz MD [Primary Care Provider] - 1-3 days Discharge Diet: Advance as tolerated Discharge Activity: Resume usual activity Patient Instructions: Dehydration (ED) Coding Level of Care Code ED Dealer Card Room for Sachig Fwd Exam Comprehensive
[2021-07-28 22:56] LABS: Basophils % 0.4 %; Hematocrit 38.7 % (42.0-52.0); Hemoglobin 13.3 g/dL (11.7-16.6); Lymphocytes # 0.2 10^3/uL (0.8-4.8); Lymphocytes % 10.3 %; Mean Corpuscular HGB Conc 34.4 g/dL (30.0-36.0); Mean Corpuscular Hemoglobin 30.9 pg (28.0-34.0); Mean Corpuscular Volume 89.8 fl (80-94); Mean Platelet Volume 9.9 fL (7.4-10.4); Monocytes % 1.8 %; Neutrophils # 1.95 10^3/uL (1.8-7.7); Neutrophils % 87.1 %; Nucleated Red Blood Cells % 0 %; Platelet Count 145 10^3/cmm (130-400); Red Blood Count 4.31 10^6/uL (4.1-5.3); Red Cell Distribution Width 11.9 % (12.1-15.1); White Blood Count 2.2 10^3/uL (4.0-10.0)
[2021-07-28 22:59] LABS: INR 1.15 (0.8-1.2)
[2021-07-28 23:02] LABS: D Dimer 3.27 ug/mIFEU (0-0.59)
[2021-07-28 23:07] LABS: Influenza A by IFA Negative (Negative); Influenza B by IFA Negative (Negative); SARS Covid-2 Antigen Negative (Negative)
[2021-07-28 23:08] LABS: Lactic Sepsis W/Reflex 3.2 mmol/L (0.5-2.2)
[2021-07-28 23:19] LABS: Alanine Aminotransferase 10 U/L (0-41); Albumin Level 3.9 g/dL (3.5-5.2); Alkaline Phosphatase 111 IU/L (40-130); Anion Gap 21.9 (5-19); Aspartate Amino Transferase 24 U/L (0-40); Blood Urea Nitrogen 33 mg/dL (8-23); C Reactive Protein 282.9 mg/L (0.0-4.9); Calcium 8.6 mg/dL (8.5-10.5); Carbon Dioxide 22 mmol/L (22-29); Chloride 96 mmol/L (98-107); Globulin 2.8 g/dL (1.3-4.6); Glucose 122 mg/dL (65-115); NT Pro B Type Natriuretic Pept 892 pg/mL (0-450); Osmolality Calculated 291 mOsm/kg (285-295); Potassium 3.9 mmol/L (3.5-5.1); Sodium 136 mmol/L (136-145); Total Protein 6.7 g/dL (6.6-8.7)
[2021-07-28] MEDS: sodium chloride 0.9% 1,000 ML 999 ML IV (23:39)
--- NOTE | 2021-07-28 23:40 | ECG_ITS ---
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1945 Requested By: Ros Ngay Order Number: [id number] Reading MD: KIRBY MENDOSA Measurements Intervals [place] Rate: 98 P: 47 NH: 148 QRS: -3 QRSD: 111 T: 42 QT: 332 QTc: 425 Interpretive Statements SINUS RHYTHM WITH FREQUENT VENTRICULAR PREMATURE COMPLEXES MODERATE INTRAVENTRICULAR CONDUCTION DELAY [110+ ms QRS DURATION] NONSPECIFIC T-WAVE ABNORMALITY ABNORMAL RHYTHM ECG Compared to ECG 05/18/2021 21:20:33 Ventricular premature complex(es) now present Intraventricular conduction delay now present T-wave abnormality now present Incomplete right bundle-branch block no longer present Electronically Signed On 07-29-2021 19:57:10 PLASTIC TILE SETTER by KIRBY MENDOSA [id number].pd f
[2021-07-28 23:59] LABS: ABG PH Result 7.46 (7.35-7.45); Arterial Blood Gas Hematocrit 38.6 % (42-52); Base Excess ABG 1.5 mmol/L (-2.0-2.0); Blood Gas Allen Test Pos; Blood Gas Sample Site Radial, left; Blood Gas Sample Type Arterial; Oxygen Device NC; PO2 ABG 73.1 mmHg (80.0-100.0)
[2021-07-29] LABS: Troponin(5th) Baseline 22 ng/L (0-15)
--- NOTE | 2021-07-29 00:01 | CTR_ITS ---
PROCEDURE INFORMATION: Exam: CT Abdomen And Pelvis With Contrast Exam date and time: 07/29/2021 12:01 AM Age: 76 years old Clinical indication: Abdominal pain; Generalized; Prior surgery; Surgery type: Lt hip; Additional info: Abd pain TECHNIQUE: Imaging protocol: Computed tomography of the abdomen and pelvis with contrast. Radiation optimization: All CT scans at this facility use at least one of these dose optimization techniques: automated exposure control; mA and/or kV adjustment per patient size (includes targeted exams where dose is matched to clinical indication); or iterative reconstruction. Contrast material: VISI 320; Contrast volume: 75 ml; Contrast route: INTRAVENOUS (IV); COMPARISON: CR Hip 1v LEFT wwo Pelvis [id number] 03/30/2019 9:42 AM RADIATION DOSE METRICS: Total DLP (mGy-cm): 1145.22 FINDINGS: Lungs: Bibasilar atelectasis versus minimal infiltrate. Emphysematous changes. Liver: Several hepatic cysts, negative for follow-up. Gallbladder and bile ducts: Normal. No calcified stones. No ductal dilation. Pancreas: Normal. No ductal dilation. Spleen: Normal. No splenomegaly. Adrenal glands: Normal. No mass. Kidneys and ureters: Several bilateral renal cysts, negative for follow up. Stomach and bowel: Constipation. Appendix: No evidence of appendicitis. Intraperitoneal space: Unremarkable. No free air. No significant fluid collection. Vasculature: Unremarkable. No abdominal aortic aneurysm. Lymph nodes: Unremarkable. No enlarged lymph nodes. Urinary bladder: Wall thickening to the dome of the urinary bladder may reflect a cystitis, partial nondistention may also be a consideration. Reproductive: Unremarkable as visualized. Bones/joints: Left hip arthroplasty changes without surrounding fluid or inflammation. Soft tissues: Unremarkable. CT/CT abdomen pelvis w con* [id number] IMPRESSION: 1. Wall thickening to the dome of the urinary bladder may reflect a cystitis, partial nondistention may also be a consideration. 2. Constipation. 3. Left hip arthroplasty changes without surrounding fluid or inflammation. 4. Bibasilar atelectasis versus minimal infiltrate. 5. Emphysematous changes. 6. Several hepatic cysts, negative for follow-up. 7. Several bilateral renal cysts, negative for follow up.
[2021-07-29] MEDS: iodixanol 320 mg/mL 100mL Btl IV ×2 (00:31→01:23)
[2021-07-29 00:32] VITALS: BP 91/50; PULSE 90; RESP 22; O2SAT 94
[2021-07-29 00:33] LABS: Reflex Lactate Order REFLEX LACTIC ORDERD
[2021-07-29 00:33] LABS: Troponin 5 2HR 26.47 ng/L (0-15)
--- NOTE | 2021-07-29 00:43 | CTR_ITS ---
PROCEDURE INFORMATION: Exam: CTA Chest With Contrast Exam date and time: 07/29/2021 12:43 AM Age: 76 years old Clinical indication: Shortness of breath; Patient HX: SOB with upper back pain. Elevated d dimer. TECHNIQUE: Imaging protocol: Computed tomographic angiography of the chest with contrast. 3D rendering (Not supervised by radiologist): MIP and/or 3D reconstructed images were created by the technologist. Radiation optimization: All CT scans at this facility use at least one of these dose optimization techniques: automated exposure control; mA and/or kV adjustment per patient size (includes targeted exams where dose is matched to clinical indication); or iterative reconstruction. Contrast material: VISI 320; Contrast volume: 85 ml; Contrast route: INTRAVENOUS (IV); COMPARISON: CR (CHEST, ) 07/28/2021 10:31 PM RADIATION DOSE METRICS: Total DLP (mGy-cm): 504.94 FINDINGS: Pulmonary arteries: Normal. No pulmonary emboli. Aorta: Unremarkable. No aortic aneurysm. No aortic dissection. Lungs: Patchy bilateral largely lower lung field atelectasis versus minimal infiltrate. Emphysematous changes suspected. Pleural spaces: Unremarkable. No pneumothorax. No pleural effusion. Heart: Coronary artery atherosclerotic calcifications. Cardiomegaly. Lymph nodes: Unremarkable. No enlarged lymph nodes. Kidneys and ureters: Several right renal cysts partially visualized. Bones/joints: Unremarkable. No acute fracture. Soft tissues: Unremarkable. CT/CT angio chest PE protcl [id number] IMPRESSION: 1. Negative for pulmonary embolus. 2. Coronary artery atherosclerotic calcifications. 3. Cardiomegaly. 4. Several right renal cysts partially visualized. 5. Patchy bilateral largely lower lung field atelectasis versus minimal infiltrate. 6. Emphysematous changes suspected. COMMENTS: Consistent with the [employer]'s Incidental Findings Committee white paper (J Am Shannon Radiol 2018): Any incidental renal lesion less than 1 cm or classified as too small to characterize, or any incidental cystic renal lesion characterized as simple-appearing, is likely benign. No follow-up imaging is recommended for these lesions per consensus recommendations based on imaging criteria.
[2021-07-29] MEDS: sodium chloride 0.9% 1,000 ML 999 ML IV ×2 (00:54→00:55)
--- NOTE | 2021-07-29 01:40 | ECG_ITS ---
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1945 Requested By: Ros Nagy Order Number: [id number] Reading MD: KIRBY MENDOSA Measurements Intervals [place] Rate: 95 P: 72 ID: [id number] QRS: 42 QRSD: 113 T: 54 QT: 331 QTc: 417 Interpretive Statements SINUS RHYTHM WITH OCCASIONAL VENTRICULAR PREMATURE COMPLEXES MODERATE INTRAVENTRICULAR CONDUCTION DELAY [110+ ms QRS DURATION] Compared to ECG 07/28/2021 23:54:00 Ventricular premature complex(es) now present Intraventricular conduction delay now present Incomplete right bundle-branch block no longer present T-wave abnormality no longer present Electronically Signed On 07-30-2021 17:48:40 INSPECTOR PENETRANT by KIRBY MENDOSA [id number] f
[2021-07-29 02:38] LABS: Lactic Acid level (Lactate) 1.1 mmol/L (0.5-2.2)
[2021-07-29] MEDS: sodium chloride 0.9% 500 ML IV (02:48)
[2021-07-29 03:20] LABS: Anion Gap 16.5 (5-19); Blood Urea Nitrogen 31 mg/dL (8-23); Calcium 7.2 mg/dL (8.5-10.5); Carbon Dioxide 22 mmol/L (22-29); Chloride 101 mmol/L (98-107); Glucose 97 mg/dL (65-115); Osmolality Calculated 288 mOsm/kg (285-295); Potassium 3.5 mmol/L (3.5-5.1); Sodium 136 mmol/L (136-145)
[2021-07-29 03:21] LABS: Lactate (Lactic Acid level) 1.5 mmol/L (0.5-2.2)
[2021-07-29 04:00] VITALS: BP 105/55; PULSE 99; RESP 20; O2SAT 95
--- NOTE | 2021-07-29 04:41 | PC.NURSE ---
walking pulse Ox 94% on RA. patient able to speak in full sentences while walking.
[2021-07-29 05:37] VITALS: BP 110/65; PULSE 92; RESP 20; TEMP 37.2; O2SAT 95
--- NOTE | 2021-07-29 23:30 | PC.NURSE ---
called pt regarding positive blood cultures. pt sts he is feeling better, pt advised to follow up w/ pcp per Dr Nagy
== END 2021-07-29 05:40 | disposition home or self-care (01) ==
PROVIDERS: Emergency Provider Emergency Medicine; PCP Family Medicine
DX: R06.00 Dyspnea, unspecified (principal); E86.0 Dehydration; I10 Essential (primary) hypertension; E78.5 Hyperlipidemia, unspecified; Z87.891 Personal history of nicotine dependence; Z20.822 Contact with and (suspected) exposure to COVID-19
CPT/HCPCS: 36600; 71045; 71275; 74177; 80048; 80053; 82803; 83605; 83880; 84484; 85025; 85378; 85610; 86140; 87040; 87077; 87186; 87205; 87426; 87804; 93005; 96360; 96361; 99284; J7030; J7040; Q9967

== ENCOUNTER → 2022-05-22 15:46 | Outpatient (BNVA) | payer MEDICARE, SELFPAY | PROVIDERS: PCP Family Medicine; Referring Provider Family Medicine; Visit Provider Orthopaedic Surgery | DX: M25.552 Pain in left hip (principal); R29.6 Repeated falls | CPT/HCPCS: 73502; 99213 ==

== ENCOUNTER 2022-07-24 08:19 | Outpatient (CLI) | payer MEDICARE, SELFPAY ==
--- NOTE | 2022-07-24 08:45 | MR_ITS ---
WS: [id number] MRI LUMBAR SPINE NONCONTRAST HISTORY: M54.50 - Low back pain, unspecified COMPARISON: 07/22/2018 TECHNIQUE: Sagittal and axial multisequence imaging is submitted. Postoperative changes and deformity in the cervical spine noted on the survey imaging. Increase in th oracic kyphosis. L4 anterolisthesis by 6 mm. Similar to the prior study. Severe disc space narrowing at L4-5. Fusion o f the L5-S1 disc space. No acute fractures or marrow edema. Disc spaces are mildly narrowed and desiccated throughout but most significant at L3-4, L4-5 and L5-S 1. Conus terminates normally at L1-2 disc level. L1-L2: Mild disc bulging. No stenosis. L2-L3: Mild annular disc bulging and mild ligamentum flavum hypertrophy. No stenosis. L3-L4: Annular disc bulge with an extruded disc extending cephalad from the disc line at the LEFT sub articular recess. Bilateral facet joint arthritis. Moderate central and bilateral subarticular recess and LEFT foraminal stenosis. L4-L5: Diffuse annular disc bulging. There is marked encroachment into the thecal sac. Clumping of th e nerve roots centrally. Severe facet joint and ligamentum flavum arthritis. Severe RIGHT foraminal s tenosis and moderate LEFT foraminal stenosis. There is significant encroachment upon the RIGHT L4 and L5 nerve roots. 5 mm LEFT facet joint cyst. L5-S1: Mild disc bulge. No high-grade stenosis. Laminectomy defects. Partially visualized RIGHT renal cyst measuring at least 3.8 cm. Smaller LEFT renal cyst. Bone graft site RIGHT ilium. MR/MR lumbar spine wo con* [id number] IMPRESSION: 1. Quality of this examination is compromised by motion artifact. 2. L4 anterolisthesis by 6 mm is unchanged. 3. Progression of facet joint arthritis and degenerative disc disease since th e prior study. 4. Moderate central, bilateral subarticular recess and LEFT foraminal stenosis at L3-4. 5. Severe RIGHT foraminal stenosis and moderate LEFT foraminal stenosis at L4- 5. 6. Fusion across the L5-S1 disc.
== END 2022-07-24 08:20 | disposition home or self-care (01) ==
PROVIDERS: PCP Family Medicine; Visit Provider Orthopaedic Surgery
DX: M48.061 Spinal stenosis, lumbar region without neurogenic claudication (principal); M51.36 Other intervertebral disc degeneration, lumbar region
CPT/HCPCS: 72148

== ENCOUNTER 2022-08-14 18:46 | Emergency (ER) | payer MEDICARE, SELFPAY ==
--- NOTE | 2022-08-14 18:49 | XRR_ITS ---
PROCEDURE INFORMATION: Exam: XR Left Hip Exam date and time: 08/14/2022 7:30 PM Age: 77 years old Clinical indication: Injury or trauma; Fall; Blunt trauma (contusions or hematomas); Left; Prior surgery; Surgery date: 6+ months; Surgery type: Hip replacement TECHNIQUE: Imaging protocol: Radiologic exam of the Left hip. Views: 2 or 3 views hip with pelvis when performed. COMPARISON: CR XR hip LT 2-3V wo/w pel* [id number] 05/22/2022 3:46 PM FINDINGS: Bones/joints: Left hip arthroplasty noted in expected alignment. No acute fracture. Soft tissues: Unremarkable. XR/XR hip LT 2-3V wo/w pel* [id number] IMPRESSION: No acute findings.
[2022-08-14 18:51] VITALS: BP 148/97; PULSE 100; RESP 16; TEMP 36.9; O2SAT 94
--- NOTE | 2022-08-14 19:19 | W.ED.EXTPRO ---
HPI - Extremity Problem General: Chief complaint: Extremity Injury, Lower Stated complaint: FALL, left hip injury Time Seen by Provider: 08/14/22 18:49 History of Present Illness: Patient reports a fall on the ice today around 1:00 PM. He reports that he was walking to check the mail and slipped and fell onto his left hip. He denies that he hit his head or any other part of his body. He denies that he had any loss of consciousness. He was able to scoot himself to the car and stand up holding onto the car. He has been able to bear weight on the hip but is very painful. He reports he had a total hip replacement on the left hip approximately 1-1/[address] Holder. Associated symptoms: Deny chest pain or fever(s) Review of Systems Const: Denies: fever(s) or chills Card: Denies: chest pain or palpitations Resp: Denies: dyspnea, productive cough or non-productive cough GI: Denies: abdominal pain, nausea or vomiting : Denies: flank pain or difficulty urinating Musc: Reports: joint pain Neuro: Denies: headache(s), lack of coordination, dizziness or confusion PFSH ED PFSH: Medical History Atrial tachycardia Benign essential hypertension with target blood pressure below 140/90 Chronic bacteriuria Dyslipidemia Hypertension Neurogenic bladder Traumatic brain injury Urinary retention Surgical History History of total left hip arthroplasty Family History Other CAD (coronary artery disease) Cancer Hypertension Social History Smoking and tobacco status: former smoker Alcohol intake: current Alcohol intake frequency: holidays/special occasions only Marital status: History of recent travel: No Physical Exam Const: COMMON NORMALS: no acute distress, patient oriented x3 and alert OTHER: Patient is alert and oriented x3. He does have a history of a traumatic brain injury from a previous accident. He denies hitting his head or any loss of consciousness today. Neck/C-Spine: COMMON NORMALS: no JVD Resp: COMMON NORMALS: normal respiratory effort, No use of accessory muscles and clear to auscultation bilaterally AUSCULTATION: clear to auscultation bilaterally Cardio: COMMON NORMALS: no JVD, regular rate, regular rhythm, S1 normal heart sound present and S2 normal heart sound present RATE: regular rate RHYTHM: regular rhythm HEART SOUNDS: S1 normal heart sound present and S2 normal heart sound present Extremity: NARRATIVE EXTREMITY EXAM: Tenderness to palpation left lateral and posterior hip. No obvious bony or soft tissue deformity appreciated. There is a postsurgical scar from his previous hip replacement. CSM within normal limits to the distal foot. Neuro: COMMON NORMALS: patient oriented x3, moves all extremities, no focal motor deficits and no sensory deficits noted SENSORIUM/ORIENTATION: Yes alert Course Vital Signs: Vital signs: Vital Signs Temperature 98.4 F 08/14/22 18:51 Pulse Rate 100 08/14/22 18:51 Respiratory Rate 16 08/14/22 18:51 Blood Pressure 148/97 08/14/22 18:51 Pulse Oximetry 94 08/14/22 18:51 Oxygen Delivery Me thod 08/14/22 18:51 MDM - Extremity (Nontraumatic) Medical Decision Making Differentials include hip fracture, contusion 2 view x-ray left hip wet read: Stable hardware with no acute fracture or dislocation appreciated Radiologist read: We will treat patient conservatively for hip contusion. Advised patient of conservative treatment at home including ice, rest, use of Tylenol as needed for pain. Follow-up with primary care provider. Return to the ER for new or worsening symptoms. Lab Data Radiology Impressions Hip/Pelvis X-Ray 08/14/22 18:49 IMPRESSION: No acute findings. Discharge Plan Discharge Patient Disposition: Home Clinical Impression: Contusion of hip Qualifiers: Encounter type: initial encounter Laterality: left Qualified Code(s): S70.02XA - Contusion of left hip, initial encounter Condition: Stable Prescriptions: No Action lisinopril 20 mg tablet 40 mg PO BID Qty: 60 0RF multivitamin Tablet 1 tab PO DAILY omeprazole 10 mg Capsule,Delayed Release(Dr/Ec) 10 mg PO BEDTIME Benadryl 25 mg Capsule 50 mg PO BEDTIME Tylenol 325 mg Capsule 650 mg PO QID PRN (Reason: Pain) amlodipine 10 mg tablet 10 mg PO DAILY Qty: 30 0RF metoprolol tartrate 100 mg tablet 100 mg PO DAILY Discharge Orders: Discharge ED (Routine); Ordered 08/14/22 Ordered By: Bettina Espinoza Referrals: Isaac Munoz MD [Primary Care Provider] - Discharge Diet: Usual diet Discharge Activity: Increase activity as tolerated Patient Instructions: Hip Contusion (ED) Activity Restrictions/Additional Instructions: Your x-rays did not show any acute injury or fracture. I recommend conservative treatment at home including ice, rest, Tylenol as needed for pain. Follow-up with your primary care provider as needed. Return to the ER for new or worsening symptoms Coding Level of Care Code ED Development Intern for Chg Fwd Exam Detailed
== END 2022-08-14 20:15 | disposition home or self-care (01) ==
PROVIDERS: Emergency Provider Nurse Practitioner Family; PCP Family Medicine
DX: S70.02XA Contusion of left hip, initial encounter (principal); I10 Essential (primary) hypertension; E78.5 Hyperlipidemia, unspecified; Z96.642 Presence of left artificial hip joint; Z87.891 Personal history of nicotine dependence; W00.0XXA Fall on same level due to ice and snow, initial encounter
CPT/HCPCS: 73502; 99283

== ENCOUNTER → 2022-10-11 09:18 | Outpatient (BNVA) | payer MEDICARE, SELFPAY | PROVIDERS: PCP Family Medicine; Visit Provider Orthopaedic Surgery | DX: M51.36 Other intervertebral disc degeneration, lumbar region (principal); M41.9 Scoliosis, unspecified; M48.062 Spinal stenosis, lumbar region with neurogenic claudication | CPT/HCPCS: 72110; 99204 ==

== ENCOUNTER → 2022-11-20 13:05 | Outpatient (BNVA) | payer MEDICARE, SELFPAY | PROVIDERS: PCP Family Medicine; Visit Provider Urology | DX: R33.9 Retention of urine, unspecified (principal) | CPT/HCPCS: 81003; 99213 ==

== ENCOUNTER → 2023-03-12 10:03 | Outpatient (BNVA) | payer MEDICARE, SELFPAY | PROVIDERS: PCP Family Medicine; Visit Provider Anesthesiology Pain Medicine | DX: M51.17 Intervertebral disc disorders with radiculopathy, lumbosacral region (principal); M48.062 Spinal stenosis, lumbar region with neurogenic claudication; M25.552 Pain in left hip | CPT/HCPCS: 99205 ==

== ENCOUNTER → 2023-04-08 13:35 | Outpatient (BNVA) | payer MEDICARE, SELFPAY | PROVIDERS: PCP Family Medicine; Visit Provider Anesthesiology Pain Medicine | DX: M47.816 Spondylosis without myelopathy or radiculopathy, lumbar region (principal); M48.062 Spinal stenosis, lumbar region with neurogenic claudication | CPT/HCPCS: 64493; 64494; 64495; J3490 ==

== ENCOUNTER → 2023-05-01 09:45 | Outpatient (BNVA) | payer MEDICARE, SELFPAY | PROVIDERS: PCP Family Medicine; Visit Provider Anesthesiology Pain Medicine | DX: M48.062 Spinal stenosis, lumbar region with neurogenic claudication (principal) | CPT/HCPCS: 99213 ==

== ENCOUNTER → 2023-05-14 14:42 | Outpatient (BNVA) | payer MEDICARE, SELFPAY | PROVIDERS: PCP Family Medicine; Visit Provider Anesthesiology Pain Medicine | DX: M47.816 Spondylosis without myelopathy or radiculopathy, lumbar region (principal); M48.062 Spinal stenosis, lumbar region with neurogenic claudication | CPT/HCPCS: 64493; 64494; 64495; J3490 ==

== ENCOUNTER → 2023-05-28 09:37 | Outpatient (BNVA) | payer MEDICARE, SELFPAY | PROVIDERS: PCP Family Medicine; Visit Provider Anesthesiology Pain Medicine | DX: M48.062 Spinal stenosis, lumbar region with neurogenic claudication (principal); M43.16 Spondylolisthesis, lumbar region; M47.816 Spondylosis without myelopathy or radiculopathy, lumbar region | CPT/HCPCS: 99214 ==

== ENCOUNTER → 2023-08-06 10:07 | Outpatient (BNVA) | payer MEDICARE, SELFPAY | PROVIDERS: PCP Family Medicine; Visit Provider Anesthesiology Pain Medicine | DX: M48.062 Spinal stenosis, lumbar region with neurogenic claudication (principal); M43.16 Spondylolisthesis, lumbar region; M43.26 Fusion of spine, lumbar region | CPT/HCPCS: 99214 ==

== ENCOUNTER → 2023-08-28 12:45 | Outpatient (BNVA) | payer MEDICARE, SELFPAY | PROVIDERS: PCP Family Medicine; Visit Provider Anesthesiology Pain Medicine | DX: M47.816 Spondylosis without myelopathy or radiculopathy, lumbar region (principal); M48.062 Spinal stenosis, lumbar region with neurogenic claudication | CPT/HCPCS: 64635; 64636; J1030 ==

== ENCOUNTER → 2023-09-11 09:22 | Outpatient (BNVA) | payer MEDICARE, SELFPAY | PROVIDERS: PCP Family Medicine; Visit Provider Anesthesiology Pain Medicine | DX: M19.011 Primary osteoarthritis, right shoulder (principal); M48.062 Spinal stenosis, lumbar region with neurogenic claudication; M43.16 Spondylolisthesis, lumbar region | CPT/HCPCS: 73030; 99214 ==

== ENCOUNTER → 2023-09-18 14:24 | Outpatient (BNVA) | payer MEDICARE, SELFPAY | PROVIDERS: PCP Family Medicine; Visit Provider Anesthesiology Pain Medicine | DX: M47.816 Spondylosis without myelopathy or radiculopathy, lumbar region (principal); M48.062 Spinal stenosis, lumbar region with neurogenic claudication | CPT/HCPCS: 64493; 64494; 64495; J3490 ==

== ENCOUNTER → 2023-09-30 14:13 | Outpatient (BNVA) | payer MEDICARE, SELFPAY | PROVIDERS: PCP Family Medicine; Visit Provider Anesthesiology Pain Medicine | DX: M47.816 Spondylosis without myelopathy or radiculopathy, lumbar region (principal); M48.062 Spinal stenosis, lumbar region with neurogenic claudication | CPT/HCPCS: 64493; 64494; 64495; J3490 ==

== ENCOUNTER → 2023-10-28 10:23 | Outpatient (BNVA) | payer MEDICARE, SELFPAY | PROVIDERS: PCP Family Medicine; Visit Provider Anesthesiology Pain Medicine | DX: M48.062 Spinal stenosis, lumbar region with neurogenic claudication (principal) | CPT/HCPCS: 99214 ==

== ENCOUNTER → 2023-11-11 13:27 | Outpatient (BNVA) | payer MEDICARE, SELFPAY | PROVIDERS: PCP Family Medicine; Visit Provider Anesthesiology Pain Medicine | DX: M48.062 Spinal stenosis, lumbar region with neurogenic claudication (principal) | CPT/HCPCS: 64635; 64636; J1010; J3490 ==

== ENCOUNTER 2024-02-07 11:20 | Outpatient (CLI) | payer MEDICARE, SELFPAY ==
--- NOTE | 2024-02-07 11:29 | XR_ITS ---
WS: [id number] XR hip BI 3-4V wo/w pel [id number] REASON FOR EXAM: BILATERAL GROIN PAIN FINDINGS: RIGHT HIP: No acute fracture or focal bone lesion. Mild narrowing of the joint space with moderate subchondral sclerosis and marginal osteophytosis of t he acetabulum. Small osteophytosis of the femoral head. No soft tissue abnormality. LEFT HIP: No fracture or focal bone lesion. Total left hip arthroplasty. The arthroplasty components are intact and in proper position and alignment. No change from 05/22/2022 . No soft tissue abnormality. XR/XR hip BI 3-4V wo/w pel [id number] IMPRESSION: Mild to moderate osteoarthritis of the right hip. Stable total left hip arthroplasty. The right sacroiliac joint has somewhat indistinct margins with a wide indistin ct sclerotic margin. This will be further evaluated on the pelvis examination w hich has been ordered.
--- NOTE | 2024-02-07 11:50 | XR_ITS ---
WS: [id number] XR pelvis min 3V [id number] REASON FOR EXAM: BILATERAL GROIN PAIN; HX LEFT HEMIARTHROPLASTY FINDINGS: No acute fracture or focal bone lesion. Specifically no sacral insufficiency fracture. The left sacroiliac joint is normal. The right sacroiliac joint demonstrates a ill-defined widened sc lerotic margin no erosions are seen. Same relative appearance on MRI of the lumbar spine 07/24/2022. P resumed chronic change likely clinically relevant. Significant degenerative disc disease at L5-S1 with vacuum disc phenomena. XR/XR pelvis min 3V [id number] IMPRESSION: No acute abnormality.
== END 2024-02-07 11:21 | disposition home or self-care (01) ==
LOC: RAD 11:23
PROVIDERS: PCP Family Medicine; Visit Provider Family Medicine
DX: M46.1 Sacroiliitis, not elsewhere classified (principal); M51.36 Other intervertebral disc degeneration, lumbar region; M51.37 Other intervertebral disc degeneration, lumbosacral region; Z96.642 Presence of left artificial hip joint; M16.11 Unilateral primary osteoarthritis, right hip; R10.2 Pelvic and perineal pain
CPT/HCPCS: 72190; 73522

== ENCOUNTER 2024-02-28 15:36 | Outpatient (CLI) | payer MEDICARE, SELFPAY ==
--- NOTE | 2024-02-28 15:46 | USR_ITS ---
PROCEDURE INFORMATION: Exam: US Pelvis Limited, Transabdominal, Soft tissue Exam date and time: 02/28/2024 3:52 PM Age: 78 years old Clinical indication: Pain; Other: Groin; Additional info: Groin pain TECHNIQUE: Imaging protocol: Real-time transabdominal pelvic ultrasound with image documentation. Limited exam. Exam focused on the soft tissue. COMPARISON: CT abdomen pelvis w con* [id number] 07/29/2021 12:29 AM FINDINGS: Soft tissues: Unremarkable. No masses or collections in visualized area. No evidence of hernia. US/US pelvic limited [id number] IMPRESSION: No acute findings.
== END 2024-02-28 15:37 | disposition home or self-care (01) ==
LOC: RAD 15:37
PROVIDERS: PCP Family Medicine; Visit Provider Family Medicine
DX: R10.2 Pelvic and perineal pain (principal)
CPT/HCPCS: 76857

== ENCOUNTER → 2024-06-01 15:06 | Outpatient (BNVA) | payer MEDICARE, SELFPAY | PROVIDERS: PCP Family Medicine; Visit Provider Family Medicine | DX: N18.9 Chronic kidney disease, unspecified (principal); I10 Essential (primary) hypertension; E78.5 Hyperlipidemia, unspecified | CPT/HCPCS: 80053; 80061; 82306; 83735; 84100; 84443; 85025 ==

== ENCOUNTER → 2024-09-07 14:33 | Outpatient (BNVA) | payer MEDICARE, SELFPAY | PROVIDERS: PCP Family Medicine; Visit Provider Family Medicine | DX: N18.9 Chronic kidney disease, unspecified (principal) | CPT/HCPCS: 80048 ==